=== PATIENT | female | born 1965 | race Caucasian/White ===

== ENCOUNTER → 2023-04-01 10:42 | Outpatient (BNVA) | payer MEDICAID, SELFPAY | PROVIDERS: PCP Nurse Practitioner Family; Referring Provider Nurse Practitioner Family; Visit Provider Psychiatry & Neurology Neurology | DX: Z82.0 Family history of epilepsy and other diseases of the nervous system (principal); F03.90 Unspecified dementia, unspecified severity, without behavioral disturbance, psychotic disturbance, mood disturbance, and anxiety | CPT/HCPCS: 99203 ==

== ENCOUNTER 2023-06-09 11:00 | Outpatient (CLI) | payer MEDICAID, SELFPAY ==
--- NOTE | 2023-06-09 12:00 | USCV_ITS ---
Eddie Babs Age: 58 Gender: F : 1965 Exam Date: 06/09/2023 12:18 Ordering Phys: Abel Blake MD Technologist: RAMONITA Exam Location: [facility] – [place]_ Indication: NECK PAIN Risk Factors: Previous Vascular Surgery: Right Brachial BP: / Left Brachial BP: / Right Left Velocity (cm/s) Spectral Plaque Velocity (cm/s) Spectral Plaque Syst/Diast Broadening Syst/Diast Broadening 79.20/ 24.90 Prox CCA 77.80 / 15.40 76.10/ 25.60 Mid CCA 88.00 / 26.50 76.90/ 26.40 Distal CCA 82.00 / 23.10 48.60/ 17.10 Prox ICA 71.50 / 25.60 66.40/ 27.60 Mid ICA 74.90 / 33.50 58.20/ 26.20 Distal ICA 70.60 / 30.00 58.50 ECA 68.40 0.84 ICA/CCA 0.85 Antegrade Vertebral Antegrade 35.20/ 11.20 cm/s 49.70/ 16.30 cm/s Tri Subclavian Tri 104.2 87.70 0 FINDINGS Comparison: none available. No significant elevation of systolic or diastolic velocities. Waveforms are normal. No significant amount of calcified plaque or intimal thickening identified. CONCLUSIONS Normal carotid doppler ultrasound. Dr. Stephanie Carroll DO (Electronically Signed) Final Date: 10 June 2023 05:58 S
== END 2023-06-09 11:01 | disposition home or self-care (01) ==
PROVIDERS: PCP Nurse Practitioner Family; Visit Provider Psychiatry & Neurology Neurology
DX: F03.90 Unspecified dementia, unspecified severity, without behavioral disturbance, psychotic disturbance, mood disturbance, and anxiety (principal); R41.9 Unspecified symptoms and signs involving cognitive functions and awareness
CPT/HCPCS: 93880

== ENCOUNTER → 2023-06-17 14:13 | Outpatient (BNVA) | payer MEDICAID, SELFPAY | PROVIDERS: PCP Nurse Practitioner Family; Visit Provider Psychiatry & Neurology Neurology | DX: F03.90 Unspecified dementia, unspecified severity, without behavioral disturbance, psychotic disturbance, mood disturbance, and anxiety (principal); Z82.0 Family history of epilepsy and other diseases of the nervous system; J44.9 Chronic obstructive pulmonary disease, unspecified; Z87.891 Personal history of nicotine dependence; Z96.89 Presence of other specified functional implants | CPT/HCPCS: 99212 ==

== ENCOUNTER 2023-07-06 11:22 | Outpatient (CLI) | payer MEDICAID, SELFPAY ==
--- NOTE | 2023-06-09 11:00 | MR_ITS ---
WS: [id number] MRI HEAD WITHOUT CONTRAST TECHNIQUE: Sagittal T1, T2 axial, T2 axial FLAIR, axial and coronal T1 images, axial susceptibility w eighted imaging, axial diffusion weighted images, and coronal T2 images were obtained. CLINICAL INFORMATION: R41.9 - Unspecified symptoms and signs involving cognitiv... COMPARISON: None. FINDINGS: No evidence of restricted diffusion to suggest acute ischemia. Ventricular system and basal cisterns are patent. Normal connors-white differentiation. Normal posterior fossa. Normal vascular flow voids at the skull base. No extra-axial fluid collections. No evidence of mass or mass effect. Tiny focus of T2 hyperintensity in the LEFT periventricular white matter likely due to prior tiny chr onic lacunar infarct in a patient this age. Tiny demyelinating lesion less likely. No other suspiciou s intracranial signal abnormalities. Small retention cyst or polyp in the RIGHT maxillary sinus. Norm al optic chiasm and pituitary infundibulum. Temporal lobes and hippocampal formations are normal in a ppearance. No hemosiderin on the susceptibly weighted images. MR/MR head wo con* [id number] IMPRESSION: 1. No evidence of restricted diffusion to suggest acute ischemia. 2. Tiny focus of T2 hyperintensity in the LEFT periventricular white matter li shorty due to prior tiny chronic lacunar infarct in a patient this age. Tiny demy elinating lesion less likely. No other suspicious intracranial signal abnormali ties. 3. No hemosiderin on susceptibly weighted images. 4. Normal optic chiasm and pituitary infundibulum. 5. Retention cyst or polyp RIGHT maxillary sinus measuring 13 mm.
== END 2023-07-06 11:23 | disposition home or self-care (01) ==
PROVIDERS: PCP Nurse Practitioner Family; Visit Provider Psychiatry & Neurology Neurology
DX: F03.90 Unspecified dementia, unspecified severity, without behavioral disturbance, psychotic disturbance, mood disturbance, and anxiety (principal); R41.9 Unspecified symptoms and signs involving cognitive functions and awareness; R90.89 Other abnormal findings on diagnostic imaging of central nervous system
CPT/HCPCS: 70551